=== PATIENT | female | born 1995 | race Caucasian/White ===

== ENCOUNTER → 2017-12-25 | Outpatient (CLI) | payer OTHER ==
[2016-02-08 04:45] VITALS: BP 114/78
--- NOTE | 2017-12-25 09:56 | RAD ---
HISTORY: Right hand injury, 5th digit, bruising Study: Three views right hand Comparison: None Findings: Normal alignment. No acute fracture or dislocation. The soft tissues are unremarkable. IMPRESSION: 1. No acute osseous abnormality. Reported By:
== END ==
LOC: RAD 09:36
PROVIDERS: ATTEND Internal Medicine
DX: M79.641 Pain in right hand (principal)
CPT/HCPCS: 73130

== ENCOUNTER 2018-05-13 08:54 | Observation (INO) ==
[2018-05-13] MEDS ORDERED: NORCO 5/325 MG TAB PO PRN (09:17)
[2018-05-13] MEDS ORDERED: ZOFRAN INJ 4 MG VIAL IVP PRN (09:17)
--- NOTE | 2018-05-13 09:21 | DR.H&P ---
H&P - History & Physical for Day of: H&P Date: 05/13/18 - Chief Complaint Chief Complaint: LUQ PAIN, SOB - History of Present Illness History of Present Illness: 22 WF DIRECT ADMIT FROM DR ROSE OFFICE. PT HAS HAD FEVER SINCE LAST THURSDAY WITH INCREASED LUQ PAIN AND SWELLING. PT CO FATIGUE AND SOB. PT CO SHARP PAIN TO LUQ WITH INSPIRATION. PT HAS DENIES ANY KNOWN PMH. PT HAD ABNORMAL LABS ON OUTPT BASIS WITH THROMBOCYTOPENIA, CT ABD/ PELVIS REVEALED SPLENOMEGALY. PT HAD ELEVATED LDH 362, ELEVATED LIVER ENZYMES WITHOUT KNOWN LIVER DISEASE. CO POOR APPETITE AND WEIGHT LOSS OVER THE PAST MONTH. APPROX 10LBS. PT REPORT SHE HAS HAD INCREASED BURRIS OVER THE PAST MONTH WITH DIZZINESS UPON STANDING. PT ADMITTED FOR TREATMENT OF ACUTE ILLNESS. - Past Medical History Past Medical History: Headaches - Past Surgical History Surgical History: No History - Family History Family Medical History: Diabetes Mellitus, Hypertension - Social History Does patient currently use any type of tobacco product: No Have you used tobacco products in the last 12 months: No Type of Tobacco Use: None Does any household member use tobacco: No Alcohol Use: Rarely Drug Use: None - Medications Home Medications: MS No Known Drug Allergy [No Known Drug Allergy] Allergy (Verified 02/08/16 04: 36) - Review of Systems Constitutional: Fever, Chills, Sweats, Weakness, Malaise Eyes: No Symptoms Reported ENT: No Symptoms Reported Respiratory: Shortness of Breath, Pleuritic Pain Cardiovascular: No Symptoms Reported Gastrointestinal: Nausea, Abdominal Pain Genitourinary: No Symptoms Reported Musculoskeletal: Back Pain Skin: No Symptoms Reported Neurological: No Symptoms Reported - Physical Exam Vital Signs: Blood Pressure 114/78 Oriented: Normal Eyes: Normal Ear: Normal Nose: Normal Throat: Normal Respiratory: LLL Diminished Cardiovascular: Normal : Normal Auscultation: Bowel Sounds: Normal Palpation: Spleen Enlarged Tenderness: LUQ Skin: Normal Musculoskeletal: Normal, Back:Thoracic, Back:Lumbar Psychiatric: Anxiety Affect: Anxious Speech Pattern: Clear, Appropriate - Assessment/Plan (1) Acute abdominal pain Status: Acute Plan: ADMISSION LABS, SEE CT ABD/PELVIS ON 05/11/2018. CBC CMP UA LDH. PAIN AND NAUSEA CONTROL. EKG ON ADMISSION, GB US. GENTLE HYDRATION NS AT 75CC/HR (2) Thrombocytopenia Status: Acute (3) Fever Status: Acute (4) Splenomegaly Status: Acute (5) Elevated liver function tests Status: Acute - Allergies Allergies/Adverse Reactions: Allergies Allergy/AdvReac Type Severity Reaction Status Date / Time MS No Known Drug Allergy Allergy Verified 02/08/16 04:36 [No Known Drug Allergy]
[2018-05-13] MEDS: NS 1000 ML 1,000 ML IV SCH ×2 (09:50→19:09)
[2018-05-13 09:55] LABS: BASOPHILS % (AUTO) 0.8 % (0.2-1.0); EOSINOPHILS % (AUTO) 0.7 % (0.9-2.9); HEMATOCRIT 39.3 % (36.0-47.0); HEMOGLOBIN 13.4 g/dL (12.0-16.0); LYMPHOCYTES % (AUTO) 51.5 % (21.0-51.0); MEAN CORPUSCULAR HEMOGLOBIN 28.2 pg (27.0-34.0); MEAN CORPUSCULAR HGB CONC 34.1 g/dL (33.0-35.0); MEAN CORPUSCULAR VOLUME 82.8 fL (80.0-100.0); MEAN PLATELET VOLUME 9.4 fL (7.4-11.0); MONOCYTES # (AUTO) 0.4 x10^3/uL (0.3-0.8); MONOCYTES % (AUTO) 10.6 % (0.0-13.0); NEUTROPHILS # (AUTO) 1.4 x10^3/uL (2.2-4.8); NEUTROPHILS % (AUTO) 36.4 % (42.0-75.0); PLATELET COUNT 124 X10^3/uL (150.0-450.0); RED BLOOD COUNT 4.75 X10^6/uL (3.5-5.4); RED CELL DISTRIBUTION WIDTH 14.4 % (11.6-16.5); WHITE BLOOD COUNT 3.8 X10^3/uL (3.6-10.0)
[2018-05-13 10:06] LABS: ALANINE AMINOTRANSFERASE 121 Units/L (12-78); ALBUMIN 3.3 g/dL (3.4-5.0); ALKALINE PHOSPHATASE 129 Units/L (46-116); ASPARTATE AMINO TRANSFERASE 106 Units/L (15-37); BLOOD UREA NITROGEN 7 mg/dL (7-18); CHLORIDE 104 mmol/L (98-107); COR CA(FOR HYPOALB) 9.6 mg/dL (8.5-10.1); CREATININE 0.97 mg/dL (0.55-1.02); LACTATE DEHYDROGENASE 377 Units/L (81-234); SODIUM 140 mmol/L (136-145); eGFR NON BLACK RACES > 60 (>60)
[2018-05-13 10:30] VITALS: BMI 27.2
[2018-05-13 11:06] LABS: BILIRUBIN,URINE NEGATIVE (NEGATIVE); BLOOD/HEMOGLOBIN,URINE NEGATIVE (NEGATIVE); GLUCOSE, URINE NEGATIVE (NEGATIVE); KETONES,URINE NEGATIVE (NEGATIVE); LEUKOCYTE ESTERASE ,URINE NEGATIVE (NEGATIVE); NITRITES,URINE NEGATIVE (NEGATIVE); PROTEIN,URINE NEGATIVE (NEGATIVE); UROBILINOGEN,URINE 2+ (NORMAL)
[2018-05-13 11:15] LABS: APPEARANCE,URINE CLEAR (CLEAR); BACTERIA,URINE TRACE /HPF (NEGATIVE); COLOR,URINE YELLOW (YELLOW); MUCUS,URINE RARE /HPF (NEGATIVE); RBC,URINE 0-2 /HPF (NONE SEEN); SQUAMOUS EPITHELIAL CELL,UR MODERATE /HPF (NEGATIVE)
--- NOTE | 2018-05-13 11:56 | US ---
NegativeHistory: Elevated LFTs and nausea Study: Ultrasound of the right upper quadrant of the abdomen Comparison: None Findings: The gallbladder is normal in size without wall thickening or stone or sludge. The common he patic duct measures 2.6 mm diameter. The liver is normal in size without mass. There is appropriate flow in the hepatic and portal veins. The right kidney measures 9 x 5.2 x 4.07 cm with cortical thickness of 1.38 cm. There is no right hyd ronephrosis or mass. The visualized pancreas is unremarkable. The IVC is patent. There is no free fluid. Impression: Reported By:
[2018-05-13 11:58] LABS: SERUM PREGNANCY TEST, QUAL NEGATIVE <10 mIU/mL
[2018-05-13] MEDS ORDERED: NS 100 ML IV 100 ML IV ONE (15:10)
--- NOTE | 2018-05-13 15:44 | CT ---
CT chest with contrast Indication: Dyspnea, shortness of breath, pain when breathing Technique: Helical CT images of the chest were obtained with IV contrast. Reformatted images in the c oronal and sagittal planes were also generated for review. Comparison: None Findings: The heart is normal in size without pericardial effusion. The thoracic aorta and proximal g reat vessels are normal in contour and caliber. No central or large segmental pulmonary arterial fill ing defects are identified. The central airways are patent. There is no mediastinal or hilar lymphade nopathy. Apart from minimal dependent atelectasis of the bilateral lower lobes, the lungs are clear w ithout focal consolidation. No pleural effusion or pneumothorax is identified. Limited images of the upper abdomen show no acute abnormality. No aggressive osseous lesions are iden tified. Impression: No acute cardiopulmonary abnormality. Reported By:
[2018-05-14 05:18] LABS: BASOPHILS % (AUTO) 1.1 % (0.2-1.0); EOSINOPHILS # (AUTO) 0.1 x10^3/uL (0.0-0.2); EOSINOPHILS % (AUTO) 1.9 % (0.9-2.9); HEMATOCRIT 36.1 % (36.0-47.0); HEMOGLOBIN 12.3 g/dL (12.0-16.0); LYMPHOCYTES # (AUTO) 2.3 X10^3/uL (1.3-2.9); LYMPHOCYTES % (AUTO) 56.8 % (21.0-51.0); MEAN CORPUSCULAR HEMOGLOBIN 28.5 pg (27.0-34.0); MEAN CORPUSCULAR HGB CONC 34.1 g/dL (33.0-35.0); MEAN CORPUSCULAR VOLUME 83.4 fL (80.0-100.0); MEAN PLATELET VOLUME 10.2 fL (7.4-11.0); MONOCYTES # (AUTO) 0.5 x10^3/uL (0.3-0.8); MONOCYTES % (AUTO) 11.1 % (0.0-13.0); NEUTROPHILS # (AUTO) 1.2 x10^3/uL (2.2-4.8); NEUTROPHILS % (AUTO) 29.1 % (42.0-75.0); PLATELET COUNT 115 X10^3/uL (150.0-450.0); RED BLOOD COUNT 4.33 X10^6/uL (3.5-5.4); RED CELL DISTRIBUTION WIDTH 13.8 % (11.6-16.5); WHITE BLOOD COUNT 4.1 X10^3/uL (3.6-10.0)
[2018-05-14 05:30] LABS: ALANINE AMINOTRANSFERASE 116 Units/L (12-78); ALBUMIN 2.8 g/dL (3.4-5.0); ALKALINE PHOSPHATASE 119 Units/L (46-116); ASPARTATE AMINO TRANSFERASE 97 Units/L (15-37); BLOOD UREA NITROGEN 5 mg/dL (7-18); CALCIUM 8.3 mg/dL (8.5-10.1); CARBON DIOXIDE 27.5 mmol/L (21-32); CHLORIDE 107 mmol/L (98-107); COR CA(FOR HYPOALB) 9.3 mg/dL (8.5-10.1); CREATININE 0.86 mg/dL (0.55-1.02); SODIUM 140 mmol/L (136-145); TOTAL PROTEIN 6.8 g/dL (6.4-8.2); eGFR NON BLACK RACES > 60 (>60)
[2018-05-14 06:57] LABS: PLATELET MORPHOLOGY COMMENT NORMAL (NORMAL)
[2018-05-14] MEDS: NS 1000 ML 1,000 ML IV SCH ×2 (07:38→13:05)
[2018-05-14] MEDS ORDERED: ULTRAM PO PRN (09:48)
[2018-05-14 13:05] VITALS: BP 121/82
--- NOTE | 2018-05-14 14:08 | RAD ---
HISTORY: Neck pain and headache Study: Five views cervical spine Comparison: None Findings: There is mild reversal of the cervical lordosis and levoscoliosis which could be positional or relate d to muscle spasm. There is no spondylolisthesis. No prevertebral soft tissue swelling can be identi fied. The odontoid appears intact. The lateral masses of C1 align with the body of C2. No acute fra cture or subluxation is identified. No destructive osseous lesions are seen. The lung apices are lili r. IMPRESSION: Mild levoscoliosis and reversal of the cervical lordosis which could be positional or related to musc le spasm. Reported By:
[2018-05-15 22:31] LABS: HEPATITIS A ANTIBODY IGM Negative (Negative)
[2018-05-17 06:26] LABS: HEPATITIS B CORE IGM Negative (Negative); HEPATITIS B SURFACE ANTIGEN Negative (Negative)
== END 2018-05-14 14:20 | disposition home or self-care (01) ==
LOC: MED/SURG
PROVIDERS: ADMIT Internal Medicine; ATTEND Internal Medicine
DX: R10.12 Left upper quadrant pain; R06.02 Shortness of breath; R60.0 Localized edema; R10.84 Generalized abdominal pain; R94.5 Abnormal results of liver function studies; R16.1 Splenomegaly, not elsewhere classified; R53.83 Other fatigue; R50.9 Fever, unspecified; D69.6 Thrombocytopenia, unspecified
CPT/HCPCS: 36415; 71260; 72050; 76705; 80053; 80074; 81001; 83020; 83021; 83615; 84703; 85025; 86701; 86703; 87389; 87476; 87496; 88184; 88185; 93005; 93010; A4222; G0378; J7030; J7050